=== PATIENT | female | born 1950 | race African-American/Black ===

== ENCOUNTER 2018-06-09 07:30 | Inpatient (IN) | payer OTHER ==
[~2018-06-09] VITALS: Ht 170.2 cm; Wt 146.5 kg
[~2018-06-09 07:30] MED LIST: AMLO10TA4 PO; ATEN-42 PO; ENAL20TA PO; HYDR-519 PO; METF-414 PO; TRAM50TA PO
[2018-06-11] MEDS ORDERED: ATOR20TA65 PO (13:06)
[2018-06-11] MEDS ORDERED: VITA0.4T7 PO (13:06)
[2018-06-11] MEDS ORDERED: CYAN250010 PO (13:06)
[2018-06-11] MEDS ORDERED: CALC1WAF PO (13:06)
[2018-06-11] MEDS ORDERED: MULT-1241 PO (13:06)
[2018-06-16] MEDS ORDERED: LACTATED RINGERS 1,000 ML IV SCH (07:45)
[2018-06-16 07:46] LABS: CLARITY URINE CLEAR (CLEAR); COLOR URINE YELLOW (YELLOW); KETONES URINE 1+ (NEGATIVE); LEUKOCYTE ESTERASE URINE NEGATIVE (NEGATIVE); NITRITE URINE NEGATIVE (NEGATIVE); OCCULT BLOOD URINE NEGATIVE (NEGATIVE); PH URINE 5.5 (4.5-8.0); PROTEIN URINE NEGATIVE (NEGATIVE); SPECIFIC GRAVITY URINE 1.027 (1.005-1.030)
[2018-06-16 07:51] LABS: BASOPHILS % 0.6 % (0.0-2.0); EOSINOPHILS % 1.1 % (0.0-5.0); HEMATOCRIT. 40.4 % (36.0-48.0); LYMPHOCYTES % 23.1 % (20.0-50.0); MEAN CORPUSCULAR HEMOGLOBIN 29.6 pg (28.0-32.0); MEAN CORPUSCULAR VOLUME 91.7 fL (81.0-99.0); MEAN PLATELET VOLUME 9.6 fl (7.4-10.4); MONOCYTES % 6.8 % (2.0-8.0); NEUTROPHILS % 68.4 % (40.0-76.0); PLATELET 245 x1000/uL (130-400)
[2018-06-16 07:54] LABS: CHLORIDE 107 mEq/L (98-107)
[2018-06-16] MEDS ORDERED: LATA7.5D BOTHEYE (08:23)
[2018-06-16] MEDS ORDERED: METHYLENE BLUE 50 MG/10 ML AMP IV ONE ×2 (09:23→09:55)
[2018-06-16] MEDS ORDERED: MORPHINE SULFATE/PF 1MG/ML 10ML AMP ONE (09:23)
[2018-06-16] MEDS ORDERED: EPINEPHRINE 1:1000 1 MG/ML AMP ONE (09:23)
[2018-06-16 09:24] LABS: INR 1.1; PARTIAL THROMBOPLASTIN TIME 27.2 sec (23.4-31.0); PROTHROMBIN TIME 10.6 sec (9.1-11.1)
[2018-06-16] MEDS ORDERED: NORMAL SALINE 0.9% 10 ML SYR ONE (09:24)
[2018-06-16] MEDS ORDERED: BUPIVACAINE HCL 0.5% (5MG/ML) 50ML ONE (09:24)
[2018-06-16] MEDS ORDERED: BACITRACIN 50,000 UNITS/VIAL ONE (09:25)
[2018-06-16] MEDS ORDERED: ROPIVACAINE HCL 10MG/ML 20 ML VIAL EPI ONE (09:25)
[2018-06-16] MEDS ORDERED: GENTAMICIN SULF 40MG/ML 2ML VIAL ONE (09:26)
[2018-06-16] MEDS ORDERED: ALBUMIN HUMAN 12.5G/250ML (5%) IV ONE (10:29)
[2018-06-16] MEDS ORDERED: TRANEXAMIC ACID 1,000 MG in SODIUM CHLORIDE 0.9% 100 ML IV NR ×2 (11:30→13:00)
[2018-06-16] MEDS ORDERED: SODIUM CHLORIDE 0.9% 1,000 ML IV ONE (12:58)
[2018-06-16] MEDS ORDERED: ONDANSETRON HCL 4MG/2ML INJ IV PRN ×2 (13:00→15:15)
[2018-06-16] MEDS ORDERED: MEPERIDINE HCL/PF 25MG/ML CPJ IV PRN ×2 (13:00)
[2018-06-16] MEDS ORDERED: VANCOMYCIN HCL 500 MG/VIAL ONE (13:01)
[2018-06-16] MEDS ORDERED: FENTANYL CITRATE/PF 50MCG/ML 2ML VIAL ONE (14:55)
[2018-06-16] MEDS ORDERED: MORPHINE SULFATE 2 MG/ML CPJ (NOT FOR IM USE) IV PRN (15:15)
[2018-06-16] MEDS ORDERED: ACETAMINOPHEN 325MG TABLET PO PRN (15:15)
[2018-06-16] MEDS ORDERED: MAGNESIUM HYDROXIDE 400MG/5ML 30ML UDC PO PRN (15:15)
[2018-06-16] MEDS ORDERED: ZOLPIDEM TARTRATE 5MG TABLET PO PRN (15:15)
[2018-06-16] MEDS: HYDROMORPHONE HCL/PF 2MG/ML CPJ IV PRN ×5 (15:43→18:28)
[2018-06-16 21:10] VITALS: BP 155/94
[2018-06-16 22:01] VITALS: BP 142/61
[2018-06-16] MEDS: MORPHINE SULFATE 4 MG/ML CPJ (NOT FOR IM USE) IV PRN (22:36)
[2018-06-17] VITALS: BP 136/54
[2018-06-17] MEDS: HYDROCODONE/ACETAMINOPHEN 10/325MG TABLET PO PRN ×5 (00:42→22:54)
[2018-06-17] MEDS: CEFAZOLIN 2,000 MG in DEXT 5% WATER 100 ML IV SCH ×2 (00:43→08:41)
[2018-06-17] MEDS: MORPHINE SULFATE 4 MG/ML CPJ (NOT FOR IM USE) IV PRN (04:15)
[2018-06-17 06:00] VITALS: BP 148/65
[2018-06-17] MEDS ORDERED: IPRATROPIUM/ALBUTEROL 0.5-3(2.5)MG/3ML NEB INH PRN (07:00)
[2018-06-17 07:34] LABS: BASOPHILS % 0.2 % (0.0-2.0); EOSINOPHILS % 0.3 % (0.0-5.0); HEMATOCRIT. 33.5 % (36.0-48.0); HEMOGLOBIN. 11.3 g/dL (12.0-16.0); LYMPHOCYTES % 9.1 % (20.0-50.0); MEAN CORPUSCULAR HEMOGLOBIN 30.2 pg (28.0-32.0); MEAN CORPUSCULAR VOLUME 89.9 fL (81.0-99.0); MEAN PLATELET VOLUME 9.4 fl (7.4-10.4); MONOCYTES % 6.7 % (2.0-8.0); NEUTROPHILS % 83.7 % (40.0-76.0); PLATELET 271 x1000/uL (130-400); RED BLOOD CELL COUNT 3.72 mill/uL (4.2-5.4)
[2018-06-17 08:00] VITALS: BP 122/48
[2018-06-17] MEDS: DOCUSATE SODIUM 100MG CAPSULE PO SCH ×2 (08:16→16:57)
[2018-06-17] MEDS: FERROUS SULFATE 325MG TABLET PO SCH ×3 (08:16→16:57)
[2018-06-17] MEDS: ENOXAPARIN 30MG/0.3ML SYR SUBCUT SCH ×2 (08:17→22:53)
[2018-06-17 09:38] LABS: CHLORIDE 105 mEq/L (98-107)
[2018-06-17 12:00] VITALS: BP 148/57
[2018-06-17 16:00] VITALS: BP 151/68
[2018-06-17 16:59] LABS: HDL CHOLESTEROL 42 mg/dL (40-59); LDL CHOLESTEROL 65 mg/dL (5-100)
[2018-06-17 20:00] VITALS: BP 140/61
[2018-06-18] VITALS: BP 132/62
[2018-06-18 04:00] VITALS: BP 137/62
[2018-06-18] MEDS: HYDROCODONE/ACETAMINOPHEN 10/325MG TABLET PO PRN ×4 (04:13→20:24)
[2018-06-18 07:02] LABS: BASOPHILS % 0.1 % (0.0-2.0); HEMATOCRIT. 35.3 % (36.0-48.0); HEMOGLOBIN. 11.3 g/dL (12.0-16.0); LYMPHOCYTES % 8.5 % (20.0-50.0); MEAN CORPUSCULAR HEMOGLOBIN 29.2 pg (28.0-32.0); MEAN CORPUSCULAR VOLUME 91.2 fL (81.0-99.0); MEAN PLATELET VOLUME 9.6 fl (7.4-10.4); MONOCYTES % 5.6 % (2.0-8.0); NEUTROPHILS % 82.8 % (40.0-76.0); PLATELET 268 x1000/uL (130-400); RED BLOOD CELL COUNT 3.87 mill/uL (4.2-5.4); RED CELL DISTRIBUTION WIDTH 14.1 % (11.6-14.6)
[2018-06-18 07:12] LABS: CHLORIDE 103 mEq/L (98-107)
[2018-06-18 08:00] VITALS: BP 136/62
[2018-06-18] MEDS: DOCUSATE SODIUM 100MG CAPSULE PO SCH ×2 (08:14→16:53)
[2018-06-18] MEDS: ENOXAPARIN 30MG/0.3ML SYR SUBCUT SCH ×2 (08:14→20:25)
[2018-06-18] MEDS: FERROUS SULFATE 325MG TABLET PO SCH ×3 (08:14→16:53)
[2018-06-18] MEDS ORDERED: POTASSIUM CHLORIDE 20MEQ TABLET SR PO NR (10:00)
[2018-06-18] MEDS ORDERED: POLYETHYLENE GLYCOL 3350 (17GM) 1 DOSE PACK PO NR (10:00)
[2018-06-18 12:00] VITALS: BP 131/69
[2018-06-18 16:00] VITALS: BP_SYST 117; BP_DIAS 51; BP_DIAS 55
[2018-06-18 20:00] VITALS: BP 99/58
[2018-06-19] VITALS: BP 114/58
[2018-06-19] MEDS: HYDROCODONE/ACETAMINOPHEN 10/325MG TABLET PO PRN ×2 (01:33→08:57)
[2018-06-19 04:00] VITALS: BP 112/59
[2018-06-19 07:39] LABS: BASOPHILS % 0.2 % (0.0-2.0); EOSINOPHILS % 4.2 % (0.0-5.0); HEMATOCRIT. 34.6 % (36.0-48.0); HEMOGLOBIN. 11.4 g/dL (12.0-16.0); MEAN CORPUSCULAR HEMOGLOBIN 30.2 pg (28.0-32.0); MEAN CORPUSCULAR VOLUME 91.4 fL (81.0-99.0); MEAN PLATELET VOLUME 9.4 fl (7.4-10.4); MONOCYTES % 6.5 % (2.0-8.0); NEUTROPHILS % 72.1 % (40.0-76.0); PLATELET 279 x1000/uL (130-400); RED BLOOD CELL COUNT 3.78 mill/uL (4.2-5.4); RED CELL DISTRIBUTION WIDTH 14.4 % (11.6-14.6)
[2018-06-19 08:00] VITALS: BP 123/58
[2018-06-19] MEDS: FERROUS SULFATE 325MG TABLET PO SCH (08:56)
[2018-06-19] MEDS: DOCUSATE SODIUM 100MG CAPSULE PO SCH (08:57)
[2018-06-19] MEDS: ENOXAPARIN 30MG/0.3ML SYR SUBCUT SCH (08:58)
[2018-06-19 10:44] LABS: CHLORIDE 101 mEq/L (98-107)
[2018-06-19 11:58] VITALS: BP 145/78
[2018-06-19 12:00] VITALS: BP 116/44
[2018-06-19] MEDS ORDERED: LOV30 SUBCUT (13:12)
[2018-06-19] MEDS ORDERED: ENOXAPARIN 40MG/0.4ML SYR SUBCUT SCH (21:00)
== END 2018-06-19 17:00 | disposition home health service (06) | DRG 470 ==
LOC: ORIP 06-16 06:23 → 6EST 06-16 21:15
PROVIDERS: ADMIT Orthopaedic Surgery; ATTEND Internal Medicine
PROC: 0SBD0ZZ Excision of Left Knee Joint, Open Approach (ICD-10-PCS; 2018-06-16)
PROC: 0SRD0J9 Replacement of Left Knee Joint with Synthetic Substitute, Cemented, Open Approach (ICD-10-PCS; principal; 2018-06-16 10:00)
DX: M17.12 Unilateral primary osteoarthritis, left knee (principal); E44.1 Mild protein-calorie malnutrition; Z68.43 Body mass index [BMI] 50.0-59.9, adult; I10 Essential (primary) hypertension; E11.9 Type 2 diabetes mellitus without complications; D64.9 Anemia, unspecified; E78.5 Hyperlipidemia, unspecified; Z96.651 Presence of right artificial knee joint; H40.9 Unspecified glaucoma; E66.01 Morbid (severe) obesity due to excess calories; D72.829 Elevated white blood cell count, unspecified; E78.00 Pure hypercholesterolemia, unspecified; G89.29 Other chronic pain; M65.9 Synovitis and tenosynovitis, unspecified; F32.9 Major depressive disorder, single episode, unspecified
CPT/HCPCS: 36415; 73560; 80048; 80061; 80076; 82962; 83036; 84443; 86850; 86900; 88305; 88311; 97116; 97162; 97166; 97530; 97535; A4216; C1713; C1776; J0690; J1170; J1580; J1650; J2270; J2274; J2795; J3010; J3370; J3490; J7030; J7050; J7060; J7120; L1830; P9041; Q9968

== ENCOUNTER 2025-04-19 15:02 | Emergency (ER) | payer MEDICARE, MEDICAID ==
[~2025-04-19] VITALS: Ht 170.2 cm; Wt 127.0 kg
[~2025-04-19 15:02] MED LIST changes: +AMLO-905 PO; -AMLO10TA4 PO; -ATEN-42 PO; +ATOR20TA65 PO; +BISA10SU62 RC; +BUDE0.5A3 IH; +CALC1WAF PO; +CYAN250010 PO; +DIPH25TA24 PO; +ENAL-79 PO; -ENAL20TA PO; +FAMO20TA8 PO; +FOLI0.8T23 MT; +GABA-529 PO; -HYDR-519 PO; +MELA3TAB71 MT; -METF-414 PO; +MULT-1241 PO; +TOPUD PO; -TRAM50TA PO
[2025-04-19 15:08] VITALS: O2SAT 100
[2025-04-19 16:28] LABS: BASOPHILS % 0.4 % (0.0-2.0); EOSINOPHILS % 2.4 % (0.0-5.0); HEMATOCRIT. 26.9 % (36.0-48.0); HEMOGLOBIN. 8.5 g/dL (12.0-16.0); LYMPHOCYTES % 17.3 % (20.0-50.0); MEAN PLATELET VOLUME 8.4 fl (7.4-10.4); MONOCYTES % 7.2 % (2.0-8.0); NEUTROPHILS % 72.7 % (40.0-76.0); PLATELET 230 x1000/uL (130-400); RED BLOOD CELL COUNT 2.76 mill/uL (4.2-5.4); RED CELL DISTRIBUTION WIDTH 15.7 % (11.6-14.6)
[2025-04-19 16:45] LABS: UREA NITROGEN BLOOD 43 mg/dL (9-23)
[2025-04-19 16:47] LABS: ASPARTATE AMINOTRANSFERASE 19 IU/L (<34); BILIRUBIN DIRECT 0.3 mg/dL (<=3.0); BILIRUBIN TOTAL 0.6 mg/dL (0.1-1.0); CREATININE 4.9 mg/dL (0.6-1.0); PROTEIN TOTAL 5.8 g/dL (6.0-8.3)
[2025-04-19 16:52] LABS: INR 1.0
[2025-04-19 21:50] VITALS: BP 113/46; PULSE 95; RESP 14; TEMP 36.8; O2SAT 95
== END 2025-04-19 21:59 | disposition home or self-care (01) ==
LOC: ER 15:02 → CMPBEDREQ 04-20 10:34
DX: I12.0 Hypertensive chronic kidney disease with stage 5 chronic kidney disease or end stage renal disease (principal); E11.22 Type 2 diabetes mellitus with diabetic chronic kidney disease; N18.6 End stage renal disease; E78.00 Pure hypercholesterolemia, unspecified; Z79.899 Other long term (current) drug therapy; Z86.73 Personal history of transient ischemic attack (TIA), and cerebral infarction without residual deficits; Z88.0 Allergy status to penicillin; Z88.5 Allergy status to narcotic agent; Z99.2 Dependence on renal dialysis
CPT/HCPCS: 36415; 80048; 80076; 85025; 86850; 86900; 99285